=== PATIENT | male | born 1955 | race Asian ===

== ENCOUNTER → 2020-02-03 | Outpatient (CLI) | payer MEDICAID, OTHER ==
--- NOTE | 2020-02-03 14:50 | REP ---
BILATERAL UPPER EXTREMITY DUPLEX DOPPLER VENOUS ULTRASOUND WITH MAPPING FOR AV FISTULA: Real-time compression and duplex Doppler interrogation of bilateral upper extremity deep vein systems is performed. There is thrombus seen in the central aspect of the right subclavian vein near a temporary dialysis catheter. Otherwise no deep vein thrombosis is seen in either jugular vein, left subclavian vein, bilateral axillary or brachial veins. No thrombus is seen in the brachial or cephalic veins bilaterally. Right basilic vein measures 6 mm at the upper egress, 5 mm at the lower humerus, 2 mm throughout the forearm. Median decubital vein measures 5 mm. Right cephalic vein measures 4 mm of the upper humerus, 3 mm in the lower humerus and upper forearm and 4 mm in the lower forearm and wrist. Right upper extremity arterial structures demonstrate somewhat elevated peak systolic velocities in the radial artery. There are diffuse triphasic waveforms. Right axillary artery measures 8 mm, brachial artery 6 mm and radial artery 3 mm and ulnar artery 2 mm. On the left, basilic vein measures 5 mm at the upper egress, 4 mm at the lower humerus, 3 mm in the upper forearm and 1 mm in the lower forearm. Medial decubital vein measures 4 mm. Left cephalic vein measures 3 mm throughout its course at the level of the humerus and forearm. Left upper extremity arterial structures demonstrate somewhat elevated peak systolic velocities in the brachial, radial and ulnar arteries with plaquing noted. Triphasic waveforms are seen diffusely. Left axillary artery measures 7 mm, brachial artery 6 mm, radial artery 3 mm and ulnar artery 2 mm. Electronically Signed by Nilo Etienne MD 02/03/2020 05:42 P
== END ==
LOC: M RAD 13:03
PROVIDERS: ATTEND Internal Medicine Nephrology
DX: I12.0 Hypertensive chronic kidney disease with stage 5 chronic kidney disease or end stage renal disease (principal); Z99.2 Dependence on renal dialysis; I25.10 Atherosclerotic heart disease of native coronary artery without angina pectoris

== ENCOUNTER → 2020-02-24 | Outpatient (CLI) | payer MEDICAID ==
[~2020-02-24] MED LIST: AMLO10TA5 PO; ASPI81TA85 PO; BASA100I SC; FOLI1TAB11 PO; FURO80TA2 PO; GABA-843 PO; INSUH10VL SC; MULTCAP PO; REFR0.5D8 OU; RENA1TAB PO; SIMV40TA20 PO; SYNT25TA PO
--- NOTE | 2020-02-24 19:08 | ECGEPIP ---
[facility] Test Date: 2020-02-24 Pat Name: SANDRO JARVIS Department: Room: - Gender: Male Proof Carrier: Jarett : 1955 Requested By: Ventura Berg Order Number: [id number] Reading MD: Sarbjit Paul Measurements Intervals [place] Rate: 66 P: 73 MD: 245 QRS: 67 QRSD: 98 T: 24 QT: 392 QTc: 413 Interpretive Statements normal sinus rhythm LA conduction disturbance? Tony first-degree AV block Subtle inferior ST scooping No prior tracing for comparison. Clincal correlation advised Electronically Signed on 02-24-2020 19:08:10 EDT by Sarbjit Paul
== END ==
LOC: M EKG 13:16
PROVIDERS: ATTEND Anesthesiology
DX: Z01.818 Encounter for other preprocedural examination (principal); N19 Unspecified kidney failure; Z99.2 Dependence on renal dialysis; E03.9 Hypothyroidism, unspecified; E11.9 Type 2 diabetes mellitus without complications; I10 Essential (primary) hypertension; Z79.4 Long term (current) use of insulin; Z79.899 Other long term (current) drug therapy

== ENCOUNTER 2020-03-02 06:22 | Day surgery (SDC) | payer MEDICAID ==
[~2020-03-02] VITALS: Ht 177.8 cm; Wt 117.9 kg
[~2020-03-02 06:22] MED LIST changes: +LIDOCAINE 1% MDV 20ML VIAL SQ PRN
[2020-03-02 06:57] LABS: HEMATOCRIT 43.5 % (42.0-52.0); HEMOGLOBIN 13.9 g/dl (13.5-17.5); MEAN CORPUSCULAR HEMOGLOBIN 25.3 pg (27.0-33.0); MEAN CORPUSCULAR VOLUME 79.2 fl (80.0-96.0); PLATELET COUNT, AUTOMATED 188 10^3/uL (150-450); RED BLOOD COUNT 5.49 10^6/uL (4.30-6.10); WHITE BLOOD COUNT 8.1 10^3/uL (4.0-10.0)
[2020-03-02] MEDS ORDERED: NS 500 ML IV ONE (07:00)
[2020-03-02] MEDS ORDERED: ceFAZolin SOD 2 GM in IV 1 EA IV ONE (07:00)
[2020-03-02 07:08] LABS: INR 1.05; PROTHROMBIN TIME 13.4 SECONDS (11.8-14.0)
[2020-03-02 07:09] LABS: PARTIAL THROMBOPLASTIN TIME 28.3 SECONDS (25.0-38.4)
[2020-03-02] MEDS ORDERED: fentaNYL 100 MCG/2 ML INJECTION (J3010) As Ordered ONE ×2 (07:17→10:33)
[2020-03-02] MEDS ORDERED: MIDAZOLAM INJ 2MG/2ML VIAL (J2250 PER 1MG) As Ordered ONE ×2 (07:17→10:33)
[2020-03-02 07:22] LABS: CALCIUM LEVEL 9.4 MG/DL (8.8-10.2); CREATININE FOR GFR 4.45 MG/DL (0.70-1.30); GLOMERULAR FILTRATION RATE 14.3 (>49); POTASSIUM SERUM 5.2 MEQ/L (3.5-5.1)
[2020-03-02] MEDS ORDERED: HumaLOG INSULIN (NovoLOG) PER UNIT As Ordered ONE (07:25)
[2020-03-02] MEDS ORDERED: HumaLOG INSULIN (NovoLOG) PER UNIT SC ONE (07:45)
[2020-03-02] MEDS ORDERED: MIDAZOLAM INJ 2MG/2ML VIAL (J2250 PER 1MG) IV ONE (09:45)
[2020-03-02] MEDS ORDERED: fentaNYL 100 MCG/2 ML INJECTION (J3010) IV ONE (09:45)
[2020-03-02] MEDS ORDERED: LIDOCAINE 1% SDV 30ML VIAL As Ordered ONE (10:07)
[2020-03-02] MEDS ORDERED: HEPARIN SOD (PORCINE) 5000UNITS/ML VIAL (J1644 PER 1000UNITS) As Ordered ONE (10:07)
[2020-03-02] MEDS ORDERED: BUPIVACAINE/EPIN 0.5% 30 ML VIAL As Ordered ONE (10:11)
[2020-03-02] MEDS ORDERED: propofoL 200 MG/20 ML VIAL As Ordered ONE ×4 (10:33→11:17)
[2020-03-02] MEDS ORDERED: OXYC1TAB23 PO (11:47)
--- NOTE | 2020-03-02 11:56 | ROOPDOC ---
[facility] Report Of Operation Report of Operation DATE OF PROCEDURE: 03/02/20 PREPROCEDURE DIAGNOSES: Renal failure requiring access for dialysis POSTPROCEDURE DIAGNOSES: Same. PROCEDURE: Left radial cephalic AV fistula creation SURGEON: Anam Smith MD ANESTHESIA: Monitored anesthesia care, left scalene nerve block, local anesthesia INDICATION FOR PROCEDURE: This is a very pleasant 65-year-old gentleman with renal failure requiring access for dialysis. His vein mapping was extensively reviewed with him in clinic. He is right-hand dominant. His preference is for a left upper extremity AV access if possible. I did feel he had a suitable option for a radiocephalic fistula on the left. Risks benefits and alternatives were explained to the patient and he was agreeable to proceed. Informed consent was obtained. REPORT of OPERATION: The patient was brought to the operating room in stable condition after a left upper extremity nerve block was placed by our anesthesia colleagues in preop holding. Monitored anesthesia care and antibiotics were administered without complication. His left upper extremity was prepped and draped in a sterile fashion. A timeout was performed. A longitudinal incision was made between the cephalic vein and the radial artery pulse at the wrist. This was carried down to subcutaneous tissue with Bovie cautery. The cephalic vein was carefully skeletonized proximally and distally within the incision. A silk suture was placed distally to ligate the vessel. We then dissected out the radial artery proximally and distally. Vesseloops were placed on the artery proximally and distally and clips were placed on a few small branches at the wrist. The cephalic vein was transected and beveled and spatulated. It was flush ed with heparinized saline. Dilators were passed through the cephalic vein sequentially, 3 mm, 3.5 mm, 4 mm. No obstruction was noted. We then placed a bulldog proximally on the cephalic vein and secured the Vesseloops on the radial artery. A 5 mm arteriotomy was made in the vein was anastomosed to the artery and an end-to-side fashion with a running 6-0 Prolene suture. Before the final sutures are placed, we flushed the inflow the outflow of the artery as well as the vein and irrigated the anastomosis with heparinized saline. The final sutures are placed and we restore flow through the inflow of the artery and the outflow that the vein, and then lastly to the hand. Good hemostasis was noted. We had excellent Doppler flow through the cephalic vein, and a strong radial signal distal to the anastomosis. There is a biphasic signal over the palmar arch. The hand was warm and well-perfused. We irrigated with copious amounts of saline. Local anesthesia was administered to the subcutaneous tissues. We closed the fascia with a running 4-0 Vicryl suture. We then closed the skin with a running subcuticular Monocryl suture. Mastisol and Steri-Strips were placed length of the incision. Dry gauze and Tegaderm were placed over the Steri-Strips and the patient was allowed to awaken from anesthesia. A sling was placed to protect the left upper extremity until the nerve block has resolved and full motor and sensory function have returned to baseline. He was then taken to recovery in stable condition. There were no complications he tolerated the anesthesia and the procedure well. ESTIMATED BLOOD LOSS: Approximately 10 mL. COMPLICATIONS: None. PLAN: Okay to resume home diet and medications. Rx for Percocet sent to patient's pharmacy. Okay to remove Tegaderm and gauze after 48 hours, but at least Steri-Strips intact for 7 days to help incision to heal. Continue to use squeeze ball. No lifting greater than 5 pounds or strenuous exercise with left arm for 2 weeks. Okay to remove sling from left arm when motor and sensory function returned. We will see the patient back in a week to check his fistula and incision. We appreciate the opportunity to participate in the care of this patient. ANAM SMITH MD Mar 02, 2020 11:56
[2020-03-02 12:50] VITALS: BP 155/75
== END 2020-03-02 13:00 | disposition home or self-care (01) ==
LOC: M SDC 06:22
PROVIDERS: ATTEND Surgery Vascular Surgery
DX: N18.6 End stage renal disease (principal); I12.0 Hypertensive chronic kidney disease with stage 5 chronic kidney disease or end stage renal disease; E11.9 Type 2 diabetes mellitus without complications; E03.9 Hypothyroidism, unspecified; E78.00 Pure hypercholesterolemia, unspecified; I25.10 Atherosclerotic heart disease of native coronary artery without angina pectoris; R06.02 Shortness of breath; Z79.4 Long term (current) use of insulin; Z79.82 Long term (current) use of aspirin; Z79.899 Other long term (current) drug therapy; Z95.5 Presence of coronary angioplasty implant and graft; Z99.2 Dependence on renal dialysis; Z98.41 Cataract extraction status, right eye; Z98.42 Cataract extraction status, left eye; Z96.1 Presence of intraocular lens
CPT/HCPCS: 36415; 36821; 64450; 80048; 85027; 85610; 85730; 86850; 86900; 86901; J0690; J1644; J2250; J3010

== ENCOUNTER → 2020-04-21 | Outpatient (CLI) | payer MEDICAID ==
[~2020-04-21] MED LIST changes: +ISOVUE-300 61% 50ML VIAL As Ordered ONE; +LIDOCAINE 1% MDV 20ML VIAL As Ordered ONE; -LIDOCAINE 1% MDV 20ML VIAL SQ PRN; +MIDAZOLAM INJ 2MG/2ML VIAL (J2250 PER 1MG) As Ordered ONE; +OXYC1TAB23 PO; +fentaNYL 100 MCG/2 ML INJECTION (J3010) As Ordered ONE
[2020-04-21 14:55] VITALS: BP 166/74
--- NOTE | 2020-04-21 15:00 | ROOPDOC ---
[facility] Report Of Operation Report of Operation DATE OF PROCEDURE: 04/21/20 PREPROCEDURE DIAGNOSES: End-stage renal disease with poorly maturing left upper extremity radiocephalic AV fistula POSTPROCEDURE DIAGNOSES: Same PROCEDURE: 1. Ultrasound-guided antegrade and retrograde access left cephalic vein 2. Fistulogram and left upper extremity venogram 3. Coiling branches of the cephalic vein, one branch with 5 x 3 tornado coils 2, one branch with 5 x 3 to noted coil 1 4. Angioplasty cephalic vein retrograde through the arterial anastomosis with 5 x 100 [place] balloon 5. Angioplasty the cephalic vein antegrade in the forearm up into the upper arm with a 7 x 200 [place] balloon 6. Completion venogram SURGEON: Anam Smith MD ANESTHESIA: Local anesthesia 5 mL lidocaine. Moderate intravenous conscious sedation was supervised by Dr. Smith. The patient was independently monitored by registered nurse sign to the Department of radiology using automated blood pressure, EKG, and pulse oximetry. The detailed sedation record is permanently stored in the hospital information system. The following is a brief record: Start time 13:01, stop time 14:23, Versed 1.5 mg IV, fentanyl 75 g IV. INDICATION FOR PROCEDURE: This is a very pleasant 65-year-old gentleman with end-stage renal disease currently dialyzing with a PermCath who has poor maturation in his left upper extremity radiocephalic AV fistula. On exam in clinic with ultrasound, the patient has several veins branching from the fistula near the AV anastomosis that I believe are stealing blood and preventing the cephalic vein from dilating and arterial icing. Risks benefits and alternatives to a fistulogram, possible angioplastied, possible coiling branches were explained to the patient and he is agreeable to proceed. Informed consent was obtained. INTERPRETATION: 1. The arteriovenous anastomosis is widely patent on ultrasound, but the radial artery and the cephalic vein near the AV anastomosis are still fairly diminutive in size. More proximal to this on the forearm, there are several large branches near the AV anastomosis visible on ultrasound. 2. The cephalic vein is patent more proximally on fistulogram through the forearm and upper arm, estimated to be about 5-6 mm diameter. There are several large branches that tie into venous tributaries throughout the forearm. This is taking a considerable amount of blood from the fistula, and likely preventing maturation. 3. Cephalic vein in the upper arm I estimate to be about 7 mm diameter and patent. There is also outflow through the basilic vein as well. 4. We were able to successfully coil to branches that were providing the main flow out of the fistula and this improved the thrill in the fistula. 5. After angioplasty of the arterial side of the fistula with a 5 x 100 balloon and the venous outflow with a 7 x 200 balloon, there was marked improvement inflow through the fistula. REPORT OF OPERATION: Patient was brought to the angiographic suite in stable condition. His left upper extremity was prepped and draped in a sterile fashion. A timeout was performed. Local anesthesia was administered to skin and subcu taneous taste tissue over the cephalic vein and a microneedle was used to access the vein and a retrograde fashion near the antecubital crease under ultrasound guidance. A wire was passed through this access and the needle was removed and a 4 Jamaican sheath was placed and flushed with saline. Through this access, sedation was administered without complication. Fistulogram through the sheath revealed a large amount of branch flow out of the fistula a few centimeters proximal to the AV anastomosis. One of the branches would be easier access to retrograde, as was our intention for this retrograde access. We advanced Glidewire into the branch and a glide cath. A 5 x 3 coil was deployed and the main branch as well as to tributaries were occluded with this coil. We then applied local anesthesia to the skin and subcutaneous tissue near the AV anastomosis over the cephalic vein. A microneedle was used to access the vein antegrade and a wire was passed through this access and the needle was removed and a 4 Jamaican glide sheath was placed and flushed with saline. Through this access, we performed a fistulogram and additional branches were noted and we selected the main branch that appear to be stealing the most blood, other than the branch we had already coiled, and we then coiled this branch with a 5 x 3 coil. There is still significant flow through the branch, so second 5 x 3 coil was placed. There are several much smaller connections to these branches from the fistula, but I do not feel they require coiling at this time as they're very small. The main outflow branches were successfully coiled. We then did antegrade angioplasty through the outflow with a 7 x 200 [place] balloon for multiple three-minute inflations. Following that, there is a marked improvement and outflow. We attempted to pass the wire retrograde past the antegrade sheath into the radial artery, but the sheath took up to manage room in the cephalic vein and therefore we elected to remove the sheath to provide room for the angioplasty of the distal cephalic vein and the arterial anastomosis. Local anesthesia was a physician pediatrician on the sheath in a [id number] Prolene suture was placed around sheath and secured. Good hemostasis was noted as the sheath was removed. We then were able to navigate the wire into the radial artery. A 5 x 100 [place] balloon was advanced through the anastomosis into the radial artery and a three-minute inflations was performed. Following this, there is a marked improvement and thrill, improvement inflow, and I believe this was beneficial for fistula maturation. Local anesthesia was administered around the retrograde sheath and a [id number] Prolene suture was secured as the sheath was removed. Pressure was held for 5 minutes there is good hemostasis. Sterile dressings were applied. The suture that had been secured at the AV anastomosis site on the wrist was removed and sterile dressings were applied. The suture from the retrograde site will be removed prior to discharge. The patient was then taken to recovery in stable condition. He tolerated the procedure and the sedation well. ESTIMATED BLOOD LOSS: Approximately 5 mL. COMPLICATIONS: None. PLAN: Continue to use PermCath for dialysis. Fistula requires more time for maturation, and may require one additional fistulogram depending on maturation after today's coiling in angioplasty. We will see the patient back in a week to check his fistula. He should continue using the squeeze ball with his left hand to help mature the fistula and improve his circulation. We appreciate the opportunity to participate in the care of this patient. ANAM SMITH MD Apr 21, 2020 15:00
== END ==
LOC: M IRPRO 12:02
PROVIDERS: ATTEND Surgery Vascular Surgery
DX: T82.590A Other mechanical complication of surgically created arteriovenous fistula, initial encounter (principal); N18.6 End stage renal disease; X58.XXXA Exposure to other specified factors, initial encounter
CPT/HCPCS: 36902; 36909; 99152; 99153; C1725; C1769; C1773; C1894; J1644; J2250; J3010; Q9967